=== PATIENT | male | born 1960 | race Caucasian/White ===

== ENCOUNTER 2018-03-22 08:21 | Emergency (ER) | payer SELFPAY ==
--- NOTE | 2018-03-22 09:29 | RAD ---
Indication: Foreign body in the right index finger. 3 views of the right index finger demonstrates no evidence of radiopaque foreign body although soft tissue swelling is noted. No fracture is noted. IMPRESSION: No fracture is identified. No foreign body is noted.
--- NOTE | 2018-03-22 10:17 | UC ---
Deshaun Saucedo Gabriel, scribed for Morgan Katz MD on 03/22/18 at 0859 . Hand/Wrist HPI - HPI Summary HPI Summary: This patient is a 57 year old M presenting to [facility] [place] with a chief complaint of a foreign body in the PIP joint of the right index finger. Pt states he believes he got a shard of metal in it 6 months ago, since then he has had multiple flare ups. He decided to come in today because the pain began radiating up into the whole finger and he is concerned for infection. The patient rates the pain 1 /10 in severity. Patient reports redness and swelling. - History Of Current Complaint Chief Complaint: UCUpperExtremity Stated Complaint: FB IN FINGER Time Seen by Provider: 03/22/18 08:46 Onset/Duration: Lasting Weeks, Still Present Severity Initially: Mild Severity Currently: Mild Pain Intensity: 1 Pain Scale Used: 0-10 Numeric Associated Signs And Symptoms: Positive: Swelling, Redness, Other - pain - Allergies/Home Medications Allergies/Adverse Reactions: Allergies Allergy/AdvReac Type Severity Reaction Status Date / Time No Known Allergies Allergy Verified 03/22/18 08:43 PMH/Surg Hx/FS Hx/Imm Hx GI/ History: Gastroesophageal Reflux - Surgical History Surgical History: None - Family History Known Family History: Negative: Seizure Disorder - Social History Occupation: Employed Full-time Lives: With Family Alcohol Use: Weekly Alcohol Amount: 12 pack Substance Use Type: None Smoking Status (MU): Never Smoked Tobacco Review of Systems Skin: Other - redness anf foreign body Musculoskeletal: Edema, Other: - pain into whole finger All Other Systems Reviewed And Are Negative: Yes Physical Exam - Summary Physical Exam Summary: General: well-appearing, no pain distress Skin: right proximal index finger has swelling, erythema, and a 5mm open wound. There is 1.5 cm proximal streaking. Finger has full ROM Head: normal Eyes: EOMI, SRAVAN ENT: normal Neck: supple, nontender Respiratory: CTA, breath sounds present Cardiovascular: RRR Abdomen: soft, nontender Bowel: present Musculoskeletal: normal, strength/ROM intact Neurological: sensory/motor intact, A&O x3 Psychological: affect/mood appropriate Triage Information Reviewed: Yes Vital Signs: Initial Vital Signs Temp 98.7 F 03/22/18 08:44 Pulse 65 03/22/18 08:44 Resp 18 03/22/18 08:44 BP 186/87 03/22/18 08:44 Pulse Ox 97 03/22/18 08:44 Vital Signs Reviewed: Yes Diagnostics - Radiology finger xray Radiology Interpretation Completed By: Radiologist - No fracture is identified. No foreign body is noted. Dr. Katz has reviewed this report. Hand/Wrist Course/Dx - Course Course Of Treatment: BP noted and advised to follow up with PCP. Medications reviewed. Allergies noted. NO FB SEEN ON X-RAY. DISCUSSED RESULTS WITH THE PATIENT. WILL RX KEFLEX AND F/U HANDS. RETURN SOONER FOR RECHECK IF WORSE. - Differential Dx/Diagnosis Provider Diagnoses: CELLULITIS RIGHT INDEX FINGER Discharge - Sign-Out/Discharge Documenting (check all that apply): Discharge/Admit/Transfer - Discharge Plan Condition: Stable Disposition: HOME Prescriptions: Cephalexin CAP* [Keflex CAP*] 500 mg PO QID #40 cap Patient Education Materials: Cellulitis (ED) Referrals: [facility] [Outside] Additional Instructions: Your blood pressure was elevated during todays visit; please follow up with your primary care provider within a week for further evaluation FOLLOW UP WITH THE ORTHOPEDIC HAND SURGEON. GET RECHECKED FOR ANY WORSENING OF YOUR CONDITION; PAIN, SPREAD OF INFECTION, YOU FEEL ILL OR QUESTIONS OR CONCERNS. - Billing Disposition and Condition Condition: STABLE Disposition: Home The documentation as recorded by the Deshaun cason Gabriel accurately reflects the service I personally performed and the decisions made by me, Morgan Katz MD.
== END 2018-03-22 09:45 | disposition home or self-care (01) ==
LOC: UCEAST 08:21
DX: L03.011 Cellulitis of right finger (principal)
CPT/HCPCS: 73140; 99212; G0463